=== PATIENT | female | born 1970 | race Caucasian/White ===

== ENCOUNTER 2021-12-15 17:21 | Emergency (ER) | payer OTHER ==
[~2021-12-15] VITALS: Ht 167.6 cm; Wt 81.7 kg
--- NOTE | ~2021-12-15 | EKG ---
[facility] [address] [facility] [place], [place] [address] Draft EK completed, results pending confirmation PATIENT NAME: JESSE DAVID Electrocardiogram DATE OF : 68 PHYSICIAN: PRELIMINARY REPORT #: [id number] REPORT IS CONFIDENTIAL AND NOT TO BE RELEASED WITHOUT AUTHORIZATION
[2021-12-15] MEDS ORDERED: JARDIANCE10 MG PO (18:10)
[2021-12-15] MEDS ORDERED: COREG12.5 MG PO (18:10)
[2021-12-15] MEDS ORDERED: LASIX20 MG PO (18:11)
[2021-12-15] MEDS ORDERED: ENTRESTO 49 MG1 EACH PO (18:11)
[2021-12-15] MEDS ORDERED: SPIRONOLACTONE25 MG PO (18:12)
== END 2021-12-15 21:38 | disposition home or self-care (01) ==
LOC: ED 17:21
DX: G43.109 Migraine with aura, not intractable, without status migrainosus (principal); Z79.899 Other long term (current) drug therapy
CPT/HCPCS: 36415; 70450; 71045; 80053; 83735; 84484; 85025; 93005; 93010; J1200; J1885; J2765